=== PATIENT | female | born 1985 | race Caucasian/White ===

== ENCOUNTER 2024-10-19 13:48 | Emergency (ER) | payer BC, OTHER ==
[~2024-10-19 13:48] MED LIST: IBUP-1984 PO; METH-360 PO; NORG1TAB90 PO
== END 2024-10-19 14:32 | disposition left against medical advice (07) ==
LOC: ER 13:49
DX: R31.9 Hematuria, unspecified (principal); Z53.21 Procedure and treatment not carried out due to patient leaving prior to being seen by health care provider

== ENCOUNTER 2024-10-19 16:05 | Inpatient (IN) | payer BC ==
[~2024-10-19] VITALS: Ht 167.6 cm; Wt 100.3 kg
[2024-10-19 16:55] LABS: MEAN PLATELET VOLUME 8.6 FL (7.4-10.4); RED CELL DISTRIBUTION WIDTH 14.7 % (11.5-14.5)
--- NOTE | 2024-10-19 16:57 | Physician Documentation ---
History of Present Illness ~ Chief Complaint: Rectal Bleeding Stated Complaint: ABD PAIN Time Seen by MD: 02:04 OK to notify your PCP?: Yes Primary Medical Doctor: NONE Source: patient, RN/, RN notes reviewed, old records Mode of Arrival: POV Exam Limitations: no limitations HPI This is a 39-year-old female with a history of irritable bowel and diverticulitis who presents with lower abdominal pain and blood in stool starting today, patient additionally reports nausea and vomiting. BED 15 This patient is a 39 y/o female who presents to ED with chief complaint of lower abdominal pain and bloody stool. Patient states that the abdominal pain just started today which she describes as a cramping pain, 4/10 in severity and localized over her RLQ. and shortly after she noticed dark red blood in her stool. Patient notes that she has had a few more stools with blood, and the last one was a brighter red color. She has also felt nauseated and had a few episodes of vomiting today. She states that these symptoms come and go, and will improve unless she attempts to drink or eat anything which she states gets her stomach moving again and causes her symptoms to return and worsen. Patient reports she has had some constipation over the past two days. Patient has history of diverticulitis and irritable bowel syndrome. Patient denies any other associated symptoms at this time. Patient denies any alleviating or exacerbating factors. Medication Reconciliation Allergies: Coded Allergies: No Known Allergies (Unverified , 10/19/24) Scheduled Norgestimate-Ethinyl Estradiol (Ortho Tri-Cyclen), 1 TABLET PO DAILY, (Reported) Discontinued Medications Ibuprofen* (Motrin*), Unknown Dose PO, (Reported) Discontinued Reason: patient no longer taking Methocarbamol (Robaxin-750), 1 TAB PO Q12H Discontinued Reason: patient no longer taking Past Medical History Past Medical History: Diverticulitis Other Past Medical History: uterine fibroids oophrectomy PCOS Past Surgical History: cholecystectomy, hysterectomy Smoking Status: Never smoker Alcohol Use: None Drug Use: marijuana Lives with: Family Lives In: Home Review of Systems All Other Systems at this time: Reviewed and Negative ROS As stated above in the HPI, otherwise all systems are reviewed and negative. Gastrointestinal: Reports: abdominal pain, rectal bleeding Physical Exam Vital Signs: RN Vital Signs have been reviewed: Yes, Temperature: 97.8, Source: Oral, Heart Rate: 69, Respiratory Rate: 18, BP: 139/85, Pulse Oximetry: 98, Weight: 100.300 Physical Exam VITALS: Reviewed and as above. GENERAL: Alert, nontoxic appearing, no apparent distress. RESPIRATORY: No increased work of breathing, no respiratory distress, speaking in full clear sentences EXAM BELOW BY EDMD DR. SANCHES General: The patient is well developed, well nourished, nontoxic appearing and is in no acute distress. Skin: Calcium, warm and dry with no rashes. HEENT: Head was normocephalic and atraumatic. Eyes - pupils equal, round, reactive to light and accommodation. Extraocular movements were intact. Conjunctivae were nonicteric. The mouth and oropharynx were clear with moist mucous membranes. There were no pharyngeal exudates or erythema. Neck: Supple and nontender. There was no jugular venous distention, lymphadenopathy, thyromegaly or masses. Chest: Clear to auscultation bilaterally without wheezes, rales or rhonchi. No accessory muscle use. No dullness to percussion. Heart: Rate regular and rhythmic. S1, S2. No murmurs. Palpation of the chest wall was normal. No rubs or thrills. Abdomen: Tenderness over the right lower quadrant. Hyperactive bowel sounds. Otherwise soft, nondistended. Positive bowel sounds. No guarding or rebound. No hepatosplenomegaly or palpable masses. Rectal: Rectal exam guaiac positive. Normal rectal tone. No hemorrhoids. Extremities: No cyanosis, clubbing or edema. The patient moves all extremities. Pulses were equal and symmetric. Neurologic: Motor and sensation grossly intact. A & O x4. Psychologic: The patient was oriented to person, place and time. Progress Progress Note [id number]: Paged Hospitalist [phone]: Case discussed with hospitalist who agrees to evaluate patient for admission. Results/Orders Reviewed/noted all lab results: Yes Results/Orders Orders - EDUAR SANCHES MD Ct Abdomen Pelvis (10/20/24 02:42) Page Hospitalist (10/20/24 04:44) Fill Out Med Reconciliation (10/20/24 04:44) Completed Orders - EDUAR SANCHES MD Ondansetron Disint. Tablet (Zofran Odt T (10/20/24 00:00) Normal Saline 1000ml (0.9% Sodium Chlori (10/20/24 02:45) Ct Abdomen Pelvis (10/20/24 02:42) Metronidazole-Flagyl 500mg/Ns (Flagyl 50 (10/20/24 02:45) Iohexol 300mg/Ml 100ml Inj. (Omnipaque-3 (10/20/24 02:57) Ciprofloxacin Lact 400mg/200ml (Ciproflo (10/20/24 04:51) Morphine 2mg/Ml Inj. (Morphine Inj.) (10/20/24 04:45) Ondansetron Inj. (Zofran 4mg/2ml Vial) (10/20/24 04:47) Type And Screen (10/20/24 04:52) Ciprofloxacin Lact 400mg/200ml (Ciproflo (10/20/24 05:29) Medications Received in ER Medications (Trade) Dose Ordered Sig/Falguni Route PRN Reason Start Time Stop Time Status Last Admin Dose Admin (Zofran ODT tablet) 4 mg ONCE ONCE PO 10/20/24 00:00 10/20/24 00:06 DC 10/20/24 00:08 4 MG (0.9% sodium chloride (NS) 1000ml IV soln) 1,000 ml ONCE ONCE IVB 10/20/24 02:45 10/20/24 02:46 DC 10/20/24 03:00 1,000 ML Metronidazole/ Sodium Chloride 100 ml @ 100 mls/hr ONCE ONCE IV 10/20/24 02:45 10/20/24 03:44 DC 10/20/24 03:00 100 MLS/HR Ciprofloxacin/ Dextrose 200 ml @ 200 mls/hr Q12H IV 10/20/24 04:51 10/20/24 05:50 DC 10/20/24 05:38 200 MLS/HR (Zofran 4mg/2ml vial) 4 mg ONCE STAT IV 10/20/24 04:47 10/20/24 04:52 DC 10/20/24 04:55 4 MG Sodium Chloride 1,000 ml @ 100 mls/hr Q10H IV 10/20/24 05:35 10/20/24 07:08 100 MLS/HR Vital Signs 9/2/25 9/2/25 9/2/25 9/2/25 16:22 20:03 21:00 22:55 Temp 97.8 97.8 97.8 Pulse 69 56 53 Resp 18 57 16 16 B/P (MAP) 139/85 155/83 (107) 155/83 (107) Pulse Ox 98 99 96 10/19/24 10/20/24 10/20/24 22:57 01:15 03:20 Temp 97.8 98.6 98.6 Pulse 55 58 56 Resp 16 16 16 B/P (MAP) 118/69 (85) 128/72 (90) 135/70 (91) Pulse Ox 99 99 99 Laboratory Tests Test 10/19/24 16:32 10/19/24 16:40 White Blood Count 12.4 H Red Blood Count 5.16 Hemoglobin 14.2 Hematocrit 42.9 Mean Corpuscular Volume 83.2 Mean Corpuscular Hemoglobin 27.6 Mean Corpuscular Hemoglobin Concent 33.1 Red Cell Distribution Width 14.7 H Platelet Count 350 Mean Platelet Volume 8.6 Neutrophils (%) (Auto) 89.6 H Lymphocytes (%) (Auto) 5.7 L Monocytes (%) (Auto) 3.9 Eosinophils (%) (Auto) 0.4 Basophils (%) (Auto) 0.4 Neutrophils # (Auto) 11.1 H Lymphocytes # (Auto) 0.7 L Monocytes # (Auto) 0.5 Eosinophils # (Auto) 0.0 Basophils # (Auto) 0.0 CBC Comment Sodium Level 139 Potassium Level 3.9 Chloride Level 104 Carbon Dioxide Level 31.0 Anion Gap 4 L Blood Urea Nitrogen 9 Creatinine 0.62 Estimated GFR/1.73 m2 > 90 BUN/Creatinine Ratio 14.5 Glucose Level 98 Calcium Level 9.2 Total Bilirubin 0.3 Aspartate Amino Transf (AST/SGOT) 14 Alanine Aminotransferase (ALT/SGPT) 15 Alkaline Phosphatase 95 Total Protein 7.7 Albumin 3.9 Globulin 3.8 Albumin/Globulin Ratio 1.0 L Lipase 46 Chemistry Comments Urine Specimen Description Cln catch midstream Urine Color Yellow Urine Clarity Clear Urine pH 5.5 Urine Specific Jordan >=1.030 Urine Protein Negative Urine Glucose (UA) Negative Urine Ketones Trace H Urine Occult Blood Negative Urine Nitrite Negative Urine Bilirubin Small Urine Urobilinogen 0.2 Urine Leukocyte Esterase Negative Urine Culture Indicated Not ind Volume Urine Centrifuged 10 ml Urine HCG, Qualitative Negative Urine Comment Re-Evaluation Re-Evaluation : Re-Evaluation: Improved Progress Patient was seen and examined. Patient is given reassurance. Patient was having some GI bleeding abdominal pain history of diverticulitis cat scan did not show any acute inflammatory changes but symptomatically was developing an acute symptoms of diverticulitis with leukocytosis. Patient was given Zofran for nausea fluids and started on metronidazole later patient continued to have pain received morphine ciprofloxacin and additional Zofran. I later contacted the hospitalist regarding admission. Patient's white count is 12.4 but no anemia left shift of 89.6%. Chemistry is negative for any electrolyte abnormalities. Patient was then typed and screened. Possible GI consultation in the morning if indicated. Patient was having discomfort did not appear comfortable but and was then admitted for further workup and care. Continuous night monitor interpretation shows normal sinus rhythm heart rate 60s, no ectopy, normal, my interpretation. Pulse oximetry monitor interpretation shows normal oxygenation 99% room air, normal, my interpretation. EKG/XRAY/CT/US/VASC/MRI CT : Interpreted By: both CT: abdomen/pelvis With Contrast?: Yes Impression [place] [address] CAT SCAN Patient: JP CORTES Medical Record: [id number] [facility] : 1985, Age: 39 Sex: Female Location: ER Patient Status: REG ER Service Date/Time: 10/20/24241 Ordering Physician: EDUAR SANCHES MD Exam: CT ABDOMEN PELVIS Exam: CT CT ABDOMEN PELVIS W/ IV CONTRAST History: ABD PAIN COMPARISON: None Technique: Multidetector spiral CT of the abdomen and pelvis was performed from lung bases to pubic symphysis. Intravenous contrast was administered during this examination. Portal venous imaging was obtained. Axial, coronal and sagittal multiplanar reformats were performed by the technologist on a separate workstation. Radiation Dose : 1. Abdomen/Pelvis: CTDIvol 29.36 mGy, DLP 1737.03 mGy*cm. CONTRAST: Type of contrast: Contrast injected: ml Contrast ingested: ml Findings: Lung Bases: No acute or significant lung base finding. Normal heart size. No pleural or pericardial effusion. Liver: The liver is normal in size. No focal lesions. Normal hepatic vascular enhancement. Gallbladder and Biliary Tree: Status post cholecystectomy. Spleen: Unremarkable Pancreas: The pancreas is normal in appearance without focal lesions or abnormal enhancement. Adrenal Glands: Unremarkable Kidneys: No hydronephrosis. Bladder: Unremarkable Bowel: The stomach is grossly normal in appearance. Small bowel and colon are normal in caliber and distribution. Diverticulosis coli without CT evidence of acute diverticulitis. The appendix is normal. Ascites: Absent Lymphadenopathy: No mesenteric, retroperitoneal or periportal lymphadenopathy. Abdominal Wall and Mesentery: Unremarkable. Vasculature: The visualized abdominal aorta is normal in size and caliber. Abdominal and pelvic vessels demonstrate normal enhancement. Pelvic Organs: Unremarkable Musculoskeletal: Well-circumscribed 1.7 cm lytic focus within the inferior right femoral greater trochanter, favor benign etiology. Otherwise, no aggressive focal bony lesions, acute fractures or dislocation. IMPRESSION: 1. No acute abdominal or pelvic finding. 2. Diverticulosis coli without CT evidence of acute diverticulitis. Radiation optimization: All CT scans at this facility use at least one of these dose optimization techniques: automated exposure control mA and/or kV adjustment per patient size (includes targeted exams where dose is matched to clinical indication) or iterative reconstruction. Electronically Signed by:LANCE MELENDEZ MD Date & Time: 10/20/24345 Dictated by: LANCE MELENDEZ MD Dictation date and time: 10/20/24345 Primary Care Provider: NO PRIMARY CARE PROVIDER cc: EDUAR SANCHES MD ~ EDMD Dr. Sanches reviewed imaging and agrees with above findings. Medical Decision Making Additional info obtained from: old records Findings MSE performed in triage and patient returned to ED lobby by nursing staff to await available ED room Diff Dx GI Bleed:Consideration: Include: AE fistula, Angiodysplasia, Bleeding diathesis, Blood loss anemia, Carcinoma, Diverticulosis, Diverticulitis, Esophageal varicies, Esophagitis, Gastritis, Gastroenteritis, Inflammatory BD, Michelle-Saba syndrome, Meckel's diverticulum, PUD, Other Departure Time of Disposition: 04:38 Disposition: 09 ADMITTED INPATIENT Admitted to Inpatient Unit: yes, to hospitalist Admission Level of Care: Med/Surg with Tele Impression: Primary Impression: Lower GI bleed Additional Impressions: History of diverticulitis Abdominal pain Qualified Codes: R10.31 - Right lower quadrant pain Condition: Guarded Referrals: NO PRIMARY CARE PROVIDER (PCP) Education Educated: Patient Educated regarding: diagnosis Signature Scribe Signature: Scribed for Eduar Sanches MD by Shari Spivey. 10/20/24 03:58 Attestation: The note accurately reflects work and decisions made by me.Eduar Sanches MD 10/20/24 07:47 FLORES LENNON Oct 19, 2024 16:57 EDUAR SANCHES MD Oct 20, 2024 03:47
[2024-10-19 17:15] LABS: CREATININE 0.62 MG/DL (0.40-0.90); TOTAL CARBON DIOXIDE 31.0 MMOL/L (24-32); eCRCL 114 ML/MIN; eGFR > 90 ML/MIN
[2024-10-19 17:24] LABS: URINE HCG NEGATIVE (NEG)
[2024-10-19 17:25] LABS: LEUKOCYTE ESTERASE ,URINE NEGATIVE (Neg); NITRITES, URINE NEGATIVE (Neg); OCCULT BLOOD,URINE NEGATIVE (Neg)
[2024-10-19 17:27] LABS: UA COLLECTION TYPE CLN CATCH MIDSTREAM
[2024-10-19] MEDS: ondansetron 4mg rapidly disintigrating tab PO ONE (19:26)
[2024-10-20] MEDS: ondansetron 4mg rapidly disintigrating tab PO ONE (00:08)
[2024-10-20] MEDS ORDERED: iohexol 300mg/ml 100ml inj. ONE (02:57)
[2024-10-20] MEDS: normal saline 1000ML IV soln IVB ONE (03:00)
[2024-10-20] MEDS: metroNIDAZOLE-Flagyl 500mg/NS 100 ML IV ONE (03:00)
--- NOTE | 2024-10-20 03:48 | RADIOLOGY REPORT ---
Exam: CT CT ABDOMEN PELVIS W/ IV CONTRAST History: ABD PAIN COMPARISON: None Technique: Multidetector spiral CT of the abdomen and pelvis was performed from lung bases to pubic s ymphysis. Intravenous contrast was administered during this examination. Portal venous imaging was o btained. Axial, coronal and sagittal multiplanar reformats were performed by the technologist on a [employer] workstation. Radiation Dose : 1. Abdomen/Pelvis: CTDIvol 29.36 mGy, DLP 1737.03 mGy*cm. CONTRAST: Type of contrast: Contrast injected: ml Contrast ingested: ml Findings: Lung Bases: No acute or significant lung base finding. Normal heart size. No pleural or pericardial effusion. Liver: The liver is normal in size. No focal lesions. Normal hepatic vascular enhancement. Gallbladder and Biliary Tree: Status post cholecystectomy. Spleen: Unremarkable Pancreas: The pancreas is normal in appearance without focal lesions or abnormal enhancement. Adrenal Glands: Unremarkable Kidneys: No hydronephrosis. Bladder: Unremarkable Bowel: The stomach is grossly normal in appearance. Small bowel and colon are normal in caliber and d istribution. Diverticulosis coli without CT evidence of acute diverticulitis. The appendix is normal. Ascites: Absent Lymphadenopathy: No mesenteric, retroperitoneal or periportal lymphadenopathy. Abdominal Wall and Mesentery: Unremarkable. Vasculature: The visualized abdominal aorta is normal in size and caliber. Abdominal and pelvic vess els demonstrate normal enhancement. Pelvic Organs: Unremarkable Musculoskeletal: Well-circumscribed 1.7 cm lytic focus within the inferior right femoral greater troc hanter, favor benign etiology. Otherwise, no aggressive focal bony lesions, acute fractures or disloc ation. IMPRESSION: 1. No acute abdominal or pelvic finding. 2. Diverticulosis coli without CT evidence of acute diverticulitis. Radiation optimization: All CT scans at this facility use at least one of these dose optimization [place] hniques: automated exposure control mA and/or kV adjustment per patient size (includes targeted exam s where dose is matched to clinical indication) or iterative reconstruction.
[2024-10-20] MEDS: ondansetron/PF 4mg/2ml inj IV STA (04:55)
[2024-10-20] MEDS ORDERED: magnesium Cl slow-release 64mg tablet PO PRN (05:35)
[2024-10-20] MEDS ORDERED: magnesium sulf-water 2g/50mL 50 ML IV PRN (05:35)
[2024-10-20] MEDS ORDERED: potassium Cl 20 mEq SR tablet PO PRN (05:35)
[2024-10-20] MEDS ORDERED: HYDROcodone/acetaminophen 10/325mg tab PO PRN (05:35)
[2024-10-20] MEDS ORDERED: magnesium sulf-water 4G/100mL 100 ML IV PRN (05:35)
[2024-10-20] MEDS ORDERED: HYDROcodone/acetaminophen 5mg/325mg tablet PO PRN (05:35)
[2024-10-20] MEDS ORDERED: potassium Cl 40MEQ/1/2NS 520ml 520 ML IV PRN (05:35)
[2024-10-20] MEDS ORDERED: magnesium hydroxide 30ml (MOM) UD suspension PO PRN (05:35)
[2024-10-20] MEDS: ciprofloxacin lact 400MG/200ML 200 ML IV SCH ×2 (05:38→11:53)
[2024-10-20] MEDS: ciprofloxacin lact 400MG/200ML 200 ML IV ONE (05:44)
--- NOTE | 2024-10-20 05:47 | HISTORY AND PHYSICAL-Residence ---
History & Physical Providers to CC Resident Creating Document: COLLINMARI REX ~ History of Present Illness Primary Medical Doctor: NONE Reason for Admit\Complaint: vomiting, bloody diarrhea History of Present Illness 39-year-old female with past medical history of endometriosis, pCO2, fibroids, hemarroids has presented to the ED with complaints of loose stools with bright red blood. Patient says she was at work when suddenly she felt uncomfortable in the stomach, went to the washroom and had loose stools with bright red blood, Associated with mild abdominal discomfort. Patient had 4-6 episodes of loose stools. She came to the ED after which she started having vomitings, mainly consisting of food material, no blood seen. Had 3-4 episodes of vomiting in the ED. patient says that she had some left over food from two days back which was left in the refrigerator, reheated and had it. She noticed abdominal discomfort starting immediately within few hours of consuming the food . Patient denies any complaints of chest pain, palpitations, burning micturition, blood in urine, headache, shortness of breadth, acid reflux. Patient denies any recent travel history.Patient reported of being diagnosed with diverticulitis in august this year. Allergies: Coded Allergies: No Known Allergies (Unverified , 10/19/24) Home Medications Home Medications Active Reported Ortho Tri-Cyclen (Norgestimate-Ethinyl Estradiol) 1 Each Tablet 1 Tablet PO DAILY Past Medical History Past Medical History Endometriosis PCOS Fibroids hemarroids Past Surgical History Surgical History Comment Hysterectomy Cholecystectomy Tubal ligation Past Social History Social History Comment Patient quit smoking since 30 years, before that smoked for 20 years. One pack for two weeks Drinks alcohol socially Marijuana occasionally no other illicit drug use Patient lives at home with family Alcohol Use: None Drug Use: Marijuana Lives with: Family Lives In: Home ROS All Other Systems: Reviewed and Negative ROS Constitutional: No fever, chills present, no dizziness Eyes: No pain, erythema, discharge, blurring of vision ENT: No sore throat, epistaxis, tinnitus Cardiovascular:No chest pain, palpitations, syncope, lower extremity edema, paroxysmal nocturnal dyspnea Respiratory: No hemoptysis. No shortness of breadth Gastrointestinal: nausea present , vomiting. Present no,hematemesis, melena , bright red blood in stools seen. Musculoskeletal:No chronmic edema. Integumentary: No change in skin, hair, No swelling, no abrasions Neurologic: No weakness,No headache, neck pain, Psychiatric: No delusions, depression, loss of interest in normal activity or change in sleep pattern, hallucinations, suicidal ideations Endocrine: no polydipsia, polyuria, change in appetite, heat or cold intolerance, sweating, dry skin Hematological: Bleeding per rectum, petechiae, bruising Allergies: No asthma or urticaria Gastrointestinal: Reports: abdominal pain, rectal bleeding Exam Vitals: Vital Signs Date Time Temp Pulse Resp B/P (MAP) Pulse Ox O2 Delivery O2 Flow Rate FiO2 10/20/24 03:20 98.6 56 16 135/70 (91) 99 General: Awake , alert and oriented to time,place, person, not in acute distress HEENT: Atraumatic, normocephalic, PEERLA, anicteric sclera ; pink conjunctiva, dry mucosa membrane Neck: Trachea midline. Supple, normal range of motion, no JVD Cardiac: S1, S2 heard, Regular rate and rhythm, without murmurs, rubs, or gallops. Chest and Respiratory: Equal breath sounds bilaterally, no tachypnea, & no rhonchi , Chest wall is symmetric and without deformity. Abdomen: Abdomen symmetric, mild abdominal tenderness no guarding or rebound tenderness, no hepatosplenomegaly Extremities: warm, No cyanosis, clubbing or edema, peripheral pulses well felt Neurological: Speech is clear, alert, and oriented x 4. No motor or sensory deficit, deep tendon reflexes normal, cerebellar intact. Cranial nerves II-XII intact. Skin: Warm and dry Psychiatry: Affect and mood are normal Diagnostic Data Last Recorded Lab Results: 10/19/24 1632 10/19/24 1632 Advance Care Planning Advanced Care plannin - 30 Minutes (Full code) Additional Plan ACUTE ABDOMINAL PAIN Bacterial gastroenteritis versus diverticulitis nausea,Vomiting Abdominal pelvis CT- Diverticulosis coli without CT evidence of acute diverticulitis. WBC elevated-12.4 Patient started on Cipro- 400mg, metronidazole-500mg. Started on IV Protonix. conservative management with IV fluids NS, pain medications, ondansetron for nausea. Hematochezia- possible lower GI bleed diverticulitis vs hemarroids consult GI for possible colonoscopy H&H ordered.follow up. Code Status: Full Code Line/tube: PIV DVT prophylaxis: heparin Nutrition: Clear liquid PT: Yes Mari Byrnes PGY-1 Date of Service: Oct 20, 2024 Billing Provider: PONCHO GARCIA MD,MARI, RES Oct 20, 2024 05:47
[2024-10-20] MEDS: normal saline 1000ml 1,000 ML IV SCH (07:08)
[2024-10-20 07:11] LABS: INR 1.1 INR
[2024-10-20 07:21] LABS: PHOSPHORUS 2.9 MG/DL (2.3-4.5)
[2024-10-20] MEDS: K and/or MAG REPLACEMENT MC SCH (08:00)
[2024-10-20] MEDS: docusate sod 100mg capsule PO SCH (08:00)
[2024-10-20] MEDS ORDERED: heparin, porcine 5000 units/ml vial SQ SCH (08:00)
[2024-10-20] MEDS: metroNIDAZOLE-Flagyl 500mg/NS 100 ML IV SCH (09:12)
[2024-10-20] MEDS: potassium Cl 20 mEq SR tablet PO PRN (09:13)
[2024-10-20 09:37] LABS: MEAN PLATELET VOLUME 8.3 FL (7.4-10.4); RED CELL DISTRIBUTION WIDTH 14.7 % (11.5-14.5)
[2024-10-20 09:47] LABS: LEUKOCYTE ESTERASE ,URINE NEGATIVE (Neg); OCCULT BLOOD,URINE NEGATIVE (Neg)
[2024-10-20 09:53] LABS: NITRITES, URINE NEGATIVE (Neg); UA COLLECTION TYPE CLN CATCH MIDSTREAM
[2024-10-20 11:44] LABS: CREATININE 0.60 MG/DL (0.40-0.90); TOTAL CARBON DIOXIDE 26.3 MMOL/L (24-32); eCRCL 118 ML/MIN; eGFR > 90 ML/MIN
[2024-10-20] MEDS: mag hydrox/Alum hydrox/simeth 30ml oral suspension PO PRN (18:16)
[2024-10-20 19:48] VITALS: BP 161/80; PULSE 56; RESP 18; TEMP 98.1; O2SAT 99
[2024-10-20 22:00] VITALS: BP 128/73; PULSE 56; RESP 18; TEMP 97.8; O2SAT 99
[2024-10-21] MEDS ORDERED: ESTR-164 TOP (00:44)
[2024-10-21] MEDS ORDERED: ESTR1PAT82 TOP (00:44)
[2024-10-21 06:00] VITALS: BP 114/70; PULSE 55; RESP 16; TEMP 98.1; O2SAT 98
[2024-10-21 06:04] LABS: MEAN PLATELET VOLUME 8.6 FL (7.4-10.4); RED CELL DISTRIBUTION WIDTH 14.4 % (11.5-14.5)
[2024-10-21 06:28] LABS: CHOL/HDL RATIO 2.8 (0.00-4.99); CREATININE 0.70 MG/DL (0.40-0.90); LDL CHOLESTEROL 77 MG/DL (50-100); TOTAL CARBON DIOXIDE 29.4 MMOL/L (24-32); eCRCL 101 ML/MIN; eGFR > 90 ML/MIN
[2024-10-21] MEDS: ondansetron/PF 4mg/2ml inj IV PRN (08:13)
[2024-10-21 10:00] VITALS: BP 128/58; PULSE 61; RESP 16; TEMP 97.9; O2SAT 97
[2024-10-21] MEDS ORDERED: ONDA-103 PO (10:53)
[2024-10-21] MEDS ORDERED: LACT1CAP26 PO (10:53)
[2024-10-21] MEDS ORDERED: CIPR-458 PO (10:53)
[2024-10-21] MEDS ORDERED: METR-349 PO (10:53)
[2024-10-21] MEDS ORDERED: PANT-47 PO (10:53)
--- NOTE | 2024-10-21 17:21 | DISCHARGE SUMMARY-Residence ---
Discharge Summary Providers to CC Resident Creating Document: DANIEL ZABALA, RES CC: ADRIEN DAVIS MD ~ Discharge Summary Admission Diagnosis: vomiting and bloody diarrhea Hospital Course DATE OF ADMISSION: 10/20/24 DATE OF DISCHARGE: 10/21/24 Discharge Diagnosis\Comment: Acute diverticulosis Possible sleep apnea Operations\Procedures: None Consultants: None Complications: None Condition on DC: Stable New Medications: Ciprofloxacin HCl (Ciprofloxacin HCl) 500 Mg Tab 1 TAB PO BID for 7 Days, #14 TAB Lactobacillus Rhamnosus (Culturelle) 10 Billion Cell Capsule 1 CAP PO DAILY for 30 Days, #30 CAP 0 Refills Metronidazole (Metronidazole) 250 Mg Tablet 1 TAB PO Q8H for 7 Days, #21 TAB Ondansetron HCl (Ondansetron HCl) 4 Mg Tablet 1 TAB PO Q4HPRN PRN for nausea/vomiting for 3 Days, #18 TAB 0 Refills Pantoprazole Sodium (PROTONIX tablet) 40 Mg Tablet.dr 1 TAB PO DAILY for 30 Days, #30 TAB 0 Refills Continued Medications: Estradiol (Briana) 0.1 Mg/24 Hour Patch.tdsw 1 PATCH TOP TuFr Discharge Summary: A 39-year-old female with past medical history of diverticulitis presented to the ED in view of bloody streaked stools, and multiple episodes of vomitings. Patient states that she started to have 4-6 episodes of loose stools on the 1st after she came back from work and had a piece up from her refrigerator. Post which, she started have abdominal comfort and gradually developed vomitings which contained food and yellowish liquid. On further evaluation patient was found to have diverticulosis coli without evidence of acute diverticulitis, mild leukocytosis. Patient was initially started on ciprofloxacin and metronidazole while complementing with IV Protonix. Patient was adequately fluid resuscitated. Patient had a similar episode two months ago when she was recommended for a GI outpatient follow up for colonoscopy that she never had done. Patient had bloody streaked stools but not bright red blood or melena. As the patient is asymptomatic, patient is medically stable for discharge. Physical examination at discharge: General: Alert, awake, oriented, not in acute distress HEENT: PERRLA, no icterus, pallor, lymphadenopathy, carotid bruit Respiratory system: Bilateral vesicular breath sounds heard, no adventitious breath sounds CVS: S1-S2 heard, no murmurs/rubs/gallop GI: Abdominal striae, right lower quadrant tenderness (improved), Soft, nontender, no organomegaly, no guarding/rigidity, bowel sounds present Neuro: No focal neurological deficits present Extremities: No edema cyanosis clubbing/deformities Skin: Warm and dry Labs at discharge: WBC: 5.9, H/H: 12.3/37.5, platelet count: 283 BUN: Four, creatinine: 0.70, Sodium: 139, potassium: 4 Imaging: CT abdomen:Diverticulosis coli without CT evidence of acute diverticulitis. Discharge medications can be found above and patient is discharged home with the following recommendations: Follow up with your primary care within two weeks of discharge. Follow up with GI (Dr. Alice Rothman, [address] [place] [address], [address] [place], [place] [id number]), Contact number: [phone] for outpatient colonoscopy. We prescribed you antibiotics (ciprofloxacin and metronidazole) for another one week, probiotic for one week. Please maintain compliance We are giving you Zofran for nausea and vomitings, please take as needed. Return to ER in view of shortness of breaths, repeated abdominal pain, bloody stool. *Problems/Diagnosis: (1) Diverticulosis Total Time Spent on D/C: > 30 Minutes Date of Service: Oct 21, 2024 Billing Provider: ADRIEN DAVIS MD, SIVA, RES Oct 21, 2024 17:08
== END 2024-10-21 16:18 | disposition home or self-care (01) | DRG 379 ==
LOC: ER 16:06 → UNDOADMIN 10-20 05:41 → ED HOLD 10-20 05:41 → ORTHO 4S 10-20 19:49 → ED HOLD 10-20 19:49
PROVIDERS: ADMIT Internal Medicine Critical Care Medicine; ATTEND Family Medicine
PROC: BW211ZZ Computerized Tomography (CT Scan) of Abdomen and Pelvis using Low Osmolar Contrast (ICD-10-PCS; principal; 2024-10-20)
DX: K57.31 Diverticulosis of large intestine without perforation or abscess with bleeding (principal); G47.30 Sleep apnea, unspecified; D72.829 Elevated white blood cell count, unspecified; Z90.710 Acquired absence of both cervix and uterus; Z90.49 Acquired absence of other specified parts of digestive tract
CPT/HCPCS: 36415; 74177; 80053; 80061; 81003; 81025; 83036; 83605; 83690; 83735; 84100; 84132; 85025; 85027; 85610; 86885; 86900; 86901; 87040; 87045; 87046; 87081; 99285; G0378; J0744; J2405; J2470; J3490; J7030; Q9967

== ENCOUNTER → 2024-11-11 | Day surgery (SDC) | payer BC ==
[2024-11-11] VITALS (10 sets, daily range): BP systolic 125–154; BP diastolic 65–86; PULSE 40–82; RESP 13–20; TEMP 97.5; O2SAT 96–100
[~2024-11-11] VITALS: Ht 167.6 cm; Wt 97.0 kg
[~2024-11-11] MED LIST changes: +ESTR-164 TOP; -IBUP-1984 PO; -METH-360 PO; -NORG1TAB90 PO; +PANT40TA54 PO; +acetaminophen 1,000mg/100ml IV 100 ML IV ONE; +midazolam 1 mg/ML 2ml injection ONE; +propofol inj 20 ML IV ONE; +ringers solution, lacted 1,000 ML IV SCH
== END | disposition home or self-care (01) ==
LOC: GI LAB 07:36
PROVIDERS: ATTEND Internal Medicine Gastroenterology
DX: K92.1 Melena (principal); K63.5 Polyp of colon; D12.5 Benign neoplasm of sigmoid colon; D12.4 Benign neoplasm of descending colon; D12.3 Benign neoplasm of transverse colon; K63.89 Other specified diseases of intestine; K57.30 Diverticulosis of large intestine without perforation or abscess without bleeding; E66.9 Obesity, unspecified; K21.9 Gastro-esophageal reflux disease without esophagitis; Z98.891 History of uterine scar from previous surgery; Z79.899 Other long term (current) drug therapy; Z68.34 Body mass index [BMI] 34.0-34.9, adult
CPT/HCPCS: 45380; 45385; 82948; J2250; J2704; J7120; 45378; A4615; A4620; C1889

== ENCOUNTER 2024-11-12 07:30 | Day surgery (SDC) | payer BC ==
[2024-11-12] VITALS (8 sets, daily range): BP systolic 114–141; BP diastolic 69–79; PULSE 44–68; RESP 14–16; TEMP 98.4; O2SAT 98–100
[~2024-11-12] VITALS: Ht 167.6 cm; Wt 99.8 kg
[~2024-11-12 07:30] MED LIST changes: -acetaminophen 1,000mg/100ml IV 100 ML IV ONE; -midazolam 1 mg/ML 2ml injection ONE; -propofol inj 20 ML IV ONE
[2024-11-12] MEDS: ringers solution, lacted 1,000 ML IV SCH (08:14)
[2024-11-12] MEDS ORDERED: propofol inj 20 ML IV ONE (10:38)
== END 2024-11-12 11:45 | disposition home or self-care (01) ==
LOC: GI LAB 07:30
PROVIDERS: ATTEND Internal Medicine Gastroenterology
DX: R11.2 Nausea with vomiting, unspecified (principal); K31.89 Other diseases of stomach and duodenum; R63.4 Abnormal weight loss; K21.9 Gastro-esophageal reflux disease without esophagitis; E66.9 Obesity, unspecified; Z79.899 Other long term (current) drug therapy; Z90.49 Acquired absence of other specified parts of digestive tract; Z90.710 Acquired absence of both cervix and uterus; Z98.51 Tubal ligation status; Z98.891 History of uterine scar from previous surgery; Z68.35 Body mass index [BMI] 35.0-35.9, adult
CPT/HCPCS: 43239; 82948; J2704; J7120; Z7512; A4615; A4620

== ENCOUNTER 2024-12-03 16:38 | Emergency (ER) | payer BC, OTHER ==
[~2024-12-03] VITALS: Ht 167.6 cm; Wt 96.0 kg
[~2024-12-03 16:38] MED LIST changes: -ringers solution, lacted 1,000 ML IV SCH
[2024-12-03 17:09] VITALS: BP 136/91; PULSE 84; RESP 16; O2SAT 100
--- NOTE | 2024-12-03 17:50 | RADIOLOGY REPORT ---
Indication: HAND PAIN Technique: DI HAND, COMPLETE (3VW MIN)HAND 3VW Comparison: None FINDINGS/IMPRESSION: No radiographic evidence for acute fracture or dislocation. No significant soft tissue edema. No radiopaque foreign body.
--- NOTE | 2024-12-03 18:59 | Physician Documentation ---
History of Present Illness ~ Chief Complaint: Finger pain Stated Complaint: FINGER PAIN Time Seen by MD: 17:38 Primary Medical Doctor: NONE HPI Pleasant 39 while at work today.-old female that presents to the emergency department for evaluation of an injury sustained to her ring finger while at work today. Reports that she struck her finger onto a hard surface jamming it. Time she has had significant pain in her finger with an associated hematoma at the tip of the finger. Patient denies any other symptoms at this time. Tetanus within 5 years: Yes Medication Reconciliation Allergies: Coded Allergies: No Known Allergies (Unverified , 12/03/24) Scheduled Estradiol (Briana), 1 PATCH TOP TuFr, (Reported) Pantoprazole Sodium (Pantoprazole Sodium), 1 TAB PO DAILY, (Reported) Past Medical History Past Medical History: Diverticulitis Past Surgical History: cholecystectomy, hysterectomy Alcohol Use: None Drug Use: marijuana Lives with: Family Lives In: Home Review of Systems ROS As stated above in the HPI, otherwise all systems are reviewed and negative. Constitutional: Reports: no symptoms reported, see HPI, chills, diaphoresis, fever, malaise, weakness, other Musculoskeletal: Reports: no symptoms reported, see HPI, pain, swelling, back pain, gout, joint pain, joint swelling, muscle pain, muscle swelling, muscle stiffness, neck pain, other Physical Exam Vital Signs: Temperature: 97.9, Source: Temporal, Heart Rate: 84, Respiratory Rate: 16, BP: 136/91, Pulse Oximetry: 100, Weight: 96.000 Oxygen Flow Rate: 0 Physical Exam VITALS: Reviewed and as above. GENERAL: Alert, no apparent distress. MUSCULOSKELETAL No deformities, mild edema noted to the to the ring finger with associated hematoma, pain with palpation and reduced range of motion. SKIN: Warm and dry, no rash NEURO: Oriented x4, No motor or sensory deficit PSYCH: Normal mood and affect, no agitation Progress Results/Orders Results/Orders Vital Signs 12/03/24 17:09 Temp 97.9 Pulse 84 Resp 16 B/P (MAP) 136/91 Pulse Ox 100 O2 Flow Rate 0 Medical Decision Making Additional information obtaine: other Findings The Pt was found to negative for fracture on XR of the right index finger. The Pt is otherwise well appearing, hemodynamically stable, and shows no evidence of neurovascular injury or compartment syndrome. Patient was placed in aluminum finger splint and follow up with her primary care provider. Patient is a educated regarding the need to have her finger reimaged or evaluated for imaging if the pain persist past 7-10 days with no improvement. Follow up with her primary care provider patient will return to the emergency department with any worsening or recurrent symptoms or any additional concerning symptoms that we discussed here today i.e. coolness to the finger discoloration of the finger numbness or tingling that is persistent fever chills nausea vomiting or any other concerning symptoms that we discussed here today. Tylenol ibuprofen as needed for discomfort. Rest ice elevation as tolerated. Follow up with the primary care provider. Please return to the emergency depa rtment with any worsening or recurrent symptoms or any additional concerning symptoms that we discussed here today. General Diff Dx:Considerations: Include: Abrasion, Contusion, Fracture, Hematoma, Laceration, Malunion, Neurovascular injury, Open fracture, Sprain, Ulcer, Other Shoulder Diff Dx:Consideration: Include: AC separation, Adhesive capsulitis, Arthritis, Bicipital tendonitis, Calcific tendonitis, Cervical disc disease, Contusion, Dislocation, Fracture-humerus, Fracture-scapula, Fracture-clavicle, GB disease, Hematoma, Impingement syndrome, Myocardial infarction, Neurovascular injury, Open fracture-humerus, Open fracture-scapula, Open fracture-clavicle, Rotator cuff injury, SC dislocatoin, Sprain, Subacromial bursitis, Other Elbow Diff Dx:Considerations: Include: Abrasion, Arthritis, Contustion, DJD, Fracture-humerus, Fracture-radial head, Fracture-radius, Fracture-ulna, Gout, Hematoma, Laceration, Neurovascular injury, Olecranon bursitis, Open fracture, Osteomyelitis, Radial head subluxation, Rheumatoid arthritis, Septic, Sprain, Ulcer, Other Wrist Diff Dx:Considerations: Include: Abrasion, Arthritis, DJD, Gout, Rheumatoid, Septic, Carpal tunnel snydrome, Contusion, Dislocation, Fracture- carpal, Fracture-radius, Fracture-ulna, Ganglion, Laceration, Neurovascular injury, Open fracture, Strain, Other Hand Diff Dx:Considerations: Include: Abrasion, Arthritis, Contusion, DJD, Felon, Fracture-carpal, Fracture-metacarpal, Fracture-phalynx, Fracture-radius, Fracture-ulna, Gout, Hematoma, Herpetic baron, Laceration, Neurovascular injury, Open fracture, Paronychia, Rheumatoid arthritis, Septic, Sprain, Subungual hematoma, Tenosynovitis, Volar plate injury, Cellulitis, Malunion, Other Finger Diff Dx:Considerations: Include: Abrasion, Cellulitis, Contusion, Dislocation, Fracture, Hematoma, Laceration, Neurovascular injury, Open fracture, Subungual hematoma, Other Departure Disposition: 01 HOME / SELF CARE / HOMELESS Impression: Primary Impression: Sprain Additional Impression: Finger sprain Condition: Stable Discharge Instructions: Sprains Additional Instructions: The Pt was found to negative for fracture on XR of the right index finger. The Pt is otherwise well appearing, hemodynamically stable, and shows no evidence of neurovascular injury or compartment syndrome. Patient was placed in aluminum finger splint and follow up with her primary care provider. Patient is a educated regarding the need to have her finger reimaged or evaluated for imaging if the pain persist past 7-10 days with no improvement. Follow up with her primary care provider patient will return to the emergency department with any worsening or recurrent symptoms or any additional concerning symptoms that we discussed here today i.e. coolness to the finger discoloration of the finger numbness or tingling that is persistent fever chills nausea vomiting or any other concerning symptoms that we discussed here today. Tylenol ibuprofen as needed for discomfort. Rest ice elevation as tolerated. Follow up with the primary care provider. Please return to the emergency department with any worsening or recurrent symptoms or any additional concerning symptoms that we discussed here today. Referrals: NO PRIMARY CARE PROVIDER (PCP) Education Educated: Patient Educated regarding: diagnosis, treatment, need for follow up Signature Scribe Signature: A Attestation: Scribed for Tracey Lobo by FRANKLYN Vickers . 12/03/24 19:02 TRACEY LOBO Dec 03, 2024 18:59
[2024-12-03 19:09] VITALS: TEMP 97.9
== END 2024-12-03 19:21 | disposition home or self-care (01) ==
LOC: ER 16:38
DX: S63.614A Unspecified sprain of right ring finger, initial encounter (principal); F12.90 Cannabis use, unspecified, uncomplicated; Z90.49 Acquired absence of other specified parts of digestive tract; Z90.710 Acquired absence of both cervix and uterus; X58.XXXA Exposure to other specified factors, initial encounter; Y93.89 Activity, other specified; Y92.89 Other specified places as the place of occurrence of the external cause; Y99.0 Civilian activity done for income or pay
CPT/HCPCS: 29130; 73130; 99283